=== PATIENT | male | born 1935 | race Caucasian/White ===

== ENCOUNTER → 2016-09-13 | Outpatient (CLI) | payer OTHER ==
--- NOTE | ~2016-09-13 | MR17 ---
[facility] A Service of [facility] RADIOLOGY TEXT RESULTS PATIENT: ARNULFO OLEARY LOCATION: [facility] : 35 UNIT #: [id number] AGE: [address]: RAIN DOMINGUEZ APRN SEX: M ORDER DR: [id number] [facility] [address] [place], [place] [address] [id number] O MR#: [id number] Acc #: [id number] NAME: ARNULFO OLEARY : 1935 SEX: M STUDY DATE/TIME: 09/13/2016 10:05 UNIT: [facility] ROOM: STUDY DESCRIPTION: MR Brain WWo Contrast Attending Physician: Rain Dominguez Aprn Referring Physician: Rain Dominguez Aprn Ordering Physician: Rain Dominguez Aprn Primary Care Physician: Obey Singh M.D. MRI CENTER REPORT This report is preliminary unless electronic signature is present. EXAM MRI of the brain with and without contrast. DATE OF EXAM 09/13/2016 COMPARISON MRI of the brain with and without contrast dated 08/28/2013, and from [facility] dated 03/18/2016. HISTORY Daily headaches for years. It is predominately in the frontal region. Patient has memory problems and difficulty getting words out. FINDINGS Multisequence multiplanar imaging of the brain was obtained with and without contrast. GFR measured 44. 14 mL of MultiHance was administered intravenously. No acute stroke, enhancing mass, hydrocephalus or midline shift. Nonenhancing CSF signal lesion is noted posterior to the cerebellar vermis measuring 1.6 x 3.3 cm. Basal ganglia, brainstem and cerebellar hemispheres are within normal limits. Thick slices through the sella with the pituitary gland, pineal region are within normal limits. Degenerative changes are in the cervical spine particularly at C3-4. Paranasal sinuses demonstrate mild left maxillary sinus mucosal thickening. Nasal septum is slightly deviated to the left with an apical spur, in the posterior aspect of the septum. Status post bilateral cataract surgery. IMPRESSION 1. There is diffuse parenchymal volume loss which appears to be age-appropriate. 2. No acute stroke, intracranial hemorrhage, hydrocephalus or midline shift. There is some prominence of CSF posterior to the cerebellar STS. 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 Dictated by... Pearl Luke M.D. THIS IS AN ELECTRONICALLY VERIFIED REPORT Pearl Luke M.D. at 09/13/2016 4:26 PM CPR/jt TD: 09/13/2016 15:22 JOB #: [id number] MRI CENTER REPORT Page 1 of 1 COPY
[2016-09-13 10:01] LABS: POC - CREATININE 1.62 mg/dL (0.64-1.27)
== END | disposition home or self-care (01) ==
LOC: CMRI 09:13
PROVIDERS: Nurse Practitioner Family
DX: R51 Headache (principal); R90.89 Other abnormal findings on diagnostic imaging of central nervous system
CPT/HCPCS: 70553; 82565; A9577